=== PATIENT | male | born 1960 | race Caucasian/White ===

== ENCOUNTER 2017-11-19 14:01 | Emergency (ER) | payer MEDICARE, MEDICAID ==
[~2017-11-19] VITALS: Ht 177.8 cm; Wt 75.2 kg
[~2017-11-19 14:01] MED LIST: BUPR150T8 PO
[2017-11-19 14:17] VITALS: BP 160/104
[2017-11-19] MEDS ORDERED: METR500T4 PO (15:22)
[2017-11-19] MEDS ORDERED: CIPR-230 PO (15:22)
[2017-11-19] MEDS ORDERED: ketorolac trometh inj. 60 MG/2 ML VIAL IM ONE (15:55)
[2017-11-19] MEDS ORDERED: ketorolac trometh. 30mg/ml inj. IM ONE (15:55)
[2017-11-19] MEDS ORDERED: metoclopramide 10mg tablet PO ONE (15:55)
== END 2017-11-19 16:06 | disposition home or self-care (01) ==
LOC: ER 14:01
DX: R10.84 Generalized abdominal pain (principal); K59.00 Constipation, unspecified; Z88.0 Allergy status to penicillin; Z79.899 Other long term (current) drug therapy
CPT/HCPCS: 74018; 96372; 99283; J1885; J8597

== ENCOUNTER 2017-11-20 13:24 | Emergency (ER) | payer MEDICARE, MEDICAID ==
[~2017-11-20] VITALS: Ht 177.8 cm; Wt 74.3 kg
[2017-11-20] MEDS ORDERED: LIDOcaine Viscous 15ml cup PO ONE (15:45)
[2017-11-20] MEDS ORDERED: ketorolac trometh. 30mg/ml inj. IV ONE (15:45)
[2017-11-20] MEDS ORDERED: normal saline 1000ML IV soln IVB ONE (15:45)
[2017-11-20] MEDS ORDERED: mag hydrox/Alum hydrox/simeth 30ml oral suspension PO ONE (15:45)
[2017-11-20 16:32] LABS: BASOPHILS % (AUTO) 0.3 % (0-1); EOSINOPHILS % (AUTO) 0.5 % (0-6); HEMATOCRIT 43.3 % (42.0-52.0); HEMOGLOBIN 15.3 g/dl (14.0-17.9); LYMPHOCYTES # (AUTO) 1.5 X10'3 (1.1-4.8); LYMPHOCYTES % (AUTO) 23.1 % (21-51); MEAN CORPUSCULAR HEMOGLOBIN 30.6 PG (27.0-31.0); MEAN CORPUSCULAR HGB CONC 35.3 % (33.0-36.5); MEAN CORPUSCULAR VOLUME 86.6 FL (78-98); MEAN PLATELET VOLUME 7.5 FL (7.4-10.4); MONOCYTES # (AUTO) 0.4 X10'3 (0-0.9); MONOCYTES % (AUTO) 5.4 % (2-12); NEUTROPHILS # (AUTO) 4.7 X10'3 (1.8-7.7); NEUTROPHILS % (AUTO) 70.7 % (42-75); PLATELET COUNT 174 X10'3 (140-440); RED CELL DISTRIBUTION WIDTH 12.1 % (11.5-14.5); WHITE BLOOD COUNT 6.6 X10'3 (4.5-11.0)
[2017-11-20 16:44] LABS: ALANINE AMINOTRANSFERASE 33 U/L (12-78); ALBUMIN 4.2 G/DL (3.4-5.0); ALBUMIN/GLOBULIN RATIO 1.2 (1.1-1.5); ALKALINE PHOSPHATASE 90 IU/L (46-116); ANION GAP 7 (8-16); ASPARTATE AMINO TRANSFERASE 32 U/L (10-37); BILIRUBIN,TOTAL 0.5 MG/DL (0.1-1.0); BLOOD UREA NITROGEN 8 MG/DL (7-18); BUN/CREATININE RATIO 8.8 (5.4-32.0); CALCIUM 9.2 MG/DL (8.5-10.1); CHLORIDE 100 MMOL/L (99-107); CREATININE 0.91 MG/DL (0.60-1.10); GLUCOSE 96 MG/DL (70-104); POTASSIUM 3.6 MMOL/L (3.5-5.1); SODIUM 137 MMOL/L (135-145); TOTAL CARBON DIOXIDE 30.1 MMOL/L (24-32); TOTAL PROTEIN 7.6 G/DL (6.4-8.2); eGFR 86 ML/MIN
[2017-11-20 16:55] LABS: CLARITY,URINE CLEAR (Clear); COLOR,URINE STRAW (Yellow); GLUCOSE, URINE NEGATIVE (Neg); KETONES,URINE NEGATIVE (Neg); LEUKOCYTE ESTERASE ,URINE NEGATIVE (Neg); NITRITES, URINE NEGATIVE (Neg); OCCULT BLOOD,URINE NEGATIVE (Neg); PH,URINE 6.5 (4.8-8.0); PROTEIN,URINE NEGATIVE (Neg); UA COLLECTION TYPE VOIDED; UROBILINOGEN,URINE 0.2 E.U/dL (0.2-1.0)
[2017-11-20] MEDS ORDERED: ketorolac trometh inj. 60 MG/2 ML VIAL IM ONE (17:00)
[2017-11-20 17:07] LABS: URINE AMPHETAMINE SCREEN NEGATIVE (Neg); URINE BARBITUATE SCREEN NEGATIVE (Neg); URINE BENZODIAZEPINES SCREEN NEGATIVE (Neg); URINE CANNABINOID SCREEN POSITIVE (Neg); URINE COCAINE SCREEN NEGATIVE (Neg); URINE METHADONE SCREEN NEGATIVE (Neg); URINE OPIATE SCREEN NEGATIVE (Neg); URINE PHENCYCLIDINE SCREEN NEGATIVE (Neg)
[2017-11-20] MEDS ORDERED: LORazepam 2 mg/ml vial IM ONE (17:10)
[2017-11-20] MEDS ORDERED: morphine 4 MG/ML inj SYRINge IM ONE (17:10)
[2017-11-20 18:38] VITALS: BP 135/77
== END 2017-11-20 18:40 | disposition home or self-care (01) ==
LOC: ER 13:24
DX: R10.9 Unspecified abdominal pain (principal); G89.29 Other chronic pain; Z90.49 Acquired absence of other specified parts of digestive tract; Z98.890 Other specified postprocedural states; Z88.0 Allergy status to penicillin; Z79.899 Other long term (current) drug therapy
CPT/HCPCS: 36415; 74176; 80053; 80305; 81003; 85025; 96372; 96374; 99285; J1885; J2060; J2270; J7030

== ENCOUNTER 2017-12-08 02:33 | Emergency (ER) | payer MEDICARE, MEDICAID ==
[~2017-12-08] VITALS: Ht 177.8 cm; Wt 84.0 kg
[2017-12-08 02:39] VITALS: BP 156/91
[2017-12-08] MEDS ORDERED: ketorolac trometh inj. 60 MG/2 ML VIAL IM ONE (03:10)
[2017-12-08] MEDS ORDERED: MAGN296S50 PO (03:43)
[2017-12-08] MEDS ORDERED: IBUP-1984 PO (03:43)
== END 2017-12-08 03:58 | disposition home or self-care (01) ==
LOC: ER 02:33
DX: G89.29 Other chronic pain (principal); Z90.49 Acquired absence of other specified parts of digestive tract; Z98.890 Other specified postprocedural states; Z88.0 Allergy status to penicillin; Z79.899 Other long term (current) drug therapy
CPT/HCPCS: 96372; 99283; J1885

== ENCOUNTER 2018-01-14 09:35 | Day surgery (SDC) | payer MEDICARE, MEDICAID ==
[~2018-01-14] VITALS: Ht 177.8 cm; Wt 72.7 kg
[~2018-01-14 09:35] MED LIST changes: +MAGN296S50 PO
[2018-01-14] MEDS ORDERED: fentaNYL/PF 50MCG/1 ML 2ML syringe ONE (10:03)
[2018-01-14] MEDS ORDERED: LIDOcaine Viscous 15ml cup ONE (10:04)
[2018-01-14] MEDS ORDERED: MIDAZolam 5mg/5ml vial ONE (10:04)
[2018-01-14] MEDS ORDERED: CYCL-145 (10:06)
[2018-01-14] MEDS ORDERED: LAMO150T2 PO (10:08)
[2018-01-14 10:12] VITALS: BP 126/79
[2018-01-14 11:19] VITALS: BP 144/91
[2018-01-14 11:29] VITALS: BP 144/89
[2018-01-14 11:39] VITALS: BP 132/66
[2018-01-14 11:49] VITALS: BP 129/80
== END 2018-01-14 12:15 | disposition home or self-care (01) ==
LOC: GI LAB 09:35
PROVIDERS: ATTEND Internal Medicine Gastroenterology
DX: K29.50 Unspecified chronic gastritis without bleeding (principal); I85.00 Esophageal varices without bleeding; G43.909 Migraine, unspecified, not intractable, without status migrainosus; G89.29 Other chronic pain; Z98.890 Other specified postprocedural states; Z85.828 Personal history of other malignant neoplasm of skin; Z86.19 Personal history of other infectious and parasitic diseases; Z88.0 Allergy status to penicillin; Z79.899 Other long term (current) drug therapy
CPT/HCPCS: 43239; J2250; J3010; J7030; A4620; G0500